=== PATIENT | male | born 1975 | race Caucasian/White ===

== ENCOUNTER 2018-02-26 13:45 | Emergency (ER) | payer OTHER ==
[~2018-02-26] VITALS: Ht 175.3 cm; Wt 73.9 kg
[2018-02-26 14:05] VITALS: Ht 175.3 cm; Wt 73.9 kg
[2018-02-26 15:03] LABS: UA SPECIFIC GRAVITY >=1.030 (1.005-1.035); microscopic required? YES; urine erythrocyte 3+ (NEGATIVE)
[2018-02-26 15:38] VITALS: BP 145/71
== END 2018-02-26 15:38 | disposition home or self-care (01) ==
LOC: ED 13:45
PROVIDERS: Specialist
DX: N39.0 Urinary tract infection, site not specified (principal); F17.210 Nicotine dependence, cigarettes, uncomplicated
CPT/HCPCS: 87491; 87591

== ENCOUNTER 2019-01-11 16:18 | Emergency (ER) | payer SELFPAY ==
[~2019-01-11] VITALS: Ht 175.3 cm; Wt 87.5 kg
[2019-01-11 16:22] VITALS: Ht 175.3 cm; Wt 87.5 kg
[2019-01-11 19:01] VITALS: BP 140/80
== END 2019-01-11 19:01 | disposition home or self-care (01) ==
LOC: ED 16:18
DX: M25.512 Pain in left shoulder (principal)
CPT/HCPCS: J1885

== ENCOUNTER 2019-01-19 07:55 | Emergency (ER) | payer SELFPAY ==
[~2019-01-19] VITALS: Ht 175.3 cm; Wt 87.5 kg
[2019-01-19 07:58] VITALS: BP 137/99; Ht 175.3 cm; Wt 87.5 kg
== END 2019-01-19 08:40 | disposition home or self-care (01) ==
LOC: ED 07:55
DX: S46.912A Strain of unspecified muscle, fascia and tendon at shoulder and upper arm level, left arm, initial encounter (principal); W18.30XA Fall on same level, unspecified, initial encounter; Y93.89 Activity, other specified; Y92.89 Other specified places as the place of occurrence of the external cause; Y99.8 Other external cause status
CPT/HCPCS: Q0092

== ENCOUNTER 2019-03-03 17:10 | Emergency (ER) | payer OTHER ==
[~2019-03-03] VITALS: Ht 175.3 cm; Wt 84.4 kg
[2019-03-03 17:18] VITALS: Ht 175.3 cm; Wt 84.4 kg
[2019-03-03 19:44] VITALS: BP 150/86
== END 2019-03-03 19:44 | disposition home or self-care (01) ==
LOC: ED 17:10
DX: M75.102 Unspecified rotator cuff tear or rupture of left shoulder, not specified as traumatic (principal)
CPT/HCPCS: J1885

== ENCOUNTER 2019-04-13 01:27 | Emergency (ER) | payer OTHER ==
[~2019-04-13] VITALS: Ht 175.3 cm; Wt 81.6 kg
[2019-04-13 01:32] VITALS: Ht 175.3 cm; Wt 81.6 kg
[2019-04-13 02:13] VITALS: BP 160/88
== END 2019-04-13 02:13 | disposition home or self-care (01) ==
LOC: ED 01:27
DX: S00.81XA Abrasion of other part of head, initial encounter (principal); W19.XXXA Unspecified fall, initial encounter; Y93.89 Activity, other specified; Y92.89 Other specified places as the place of occurrence of the external cause; Y99.8 Other external cause status

== ENCOUNTER 2019-08-20 00:41 | Emergency (ER) | payer OTHER ==
[~2019-08-20] VITALS: Ht 175.3 cm; Wt 81.6 kg
[2019-08-20 00:49] VITALS: Ht 175.3 cm; Wt 81.6 kg
[2019-08-20 03:06] VITALS: BP 138/84
== END 2019-08-20 03:06 | disposition home or self-care (01) ==
LOC: ED 00:41
DX: T14.90XA Injury, unspecified, initial encounter (principal); R04.0 Epistaxis; Y04.8XXA Assault by other bodily force, initial encounter; Y93.89 Activity, other specified; Y92.89 Other specified places as the place of occurrence of the external cause; Y99.8 Other external cause status

== ENCOUNTER 2019-09-02 09:10 | Emergency (ER) | payer OTHER ==
[~2019-09-02] VITALS: Ht 175.3 cm; Wt 81.2 kg
[2019-09-02 09:33] VITALS: BP 149/88; Ht 175.3 cm; Wt 81.2 kg
== END 2019-09-02 10:24 | disposition home or self-care (01) ==
LOC: ED 09:10
DX: M77.9 Enthesopathy, unspecified (principal); F17.290 Nicotine dependence, other tobacco product, uncomplicated
CPT/HCPCS: 99406

== ENCOUNTER 2020-01-05 18:10 | Emergency (ER) | payer OTHER ==
[~2020-01-05] VITALS: Ht 175.3 cm; Wt 77.1 kg
[2020-01-05 18:14] VITALS: BP 148/96; Ht 175.3 cm; Wt 77.1 kg
== END 2020-01-05 19:08 | disposition left against medical advice (07) ==
LOC: ED 18:10
DX: T40.601A Poisoning by unspecified narcotics, accidental (unintentional), initial encounter (principal); R40.4 Transient alteration of awareness; M19.90 Unspecified osteoarthritis, unspecified site; Y92.89 Other specified places as the place of occurrence of the external cause
CPT/HCPCS: 82962; Q0092